=== PATIENT | female | born 1965 | race Caucasian/White ===

== ENCOUNTER 2017-07-27 06:07 | Day surgery (SDC) | payer OTHER ==
[~2017-07-27] VITALS: Ht 163.8 cm; Wt 104.3 kg
[~2017-07-27 06:07] MED LIST: DOXYCYCLINE HYC50 MG PO; OMEPRAZOLE40 M1 PO
[2017-07-27 13:10] VITALS: BP 140/85
[2017-07-27 14:10] VITALS: BP 141/83
[2017-07-27 14:54] VITALS: BP 120/66
== END 2017-07-27 15:02 | disposition home or self-care (01) ==
LOC: SDC 06:07
DX: K43.9 Ventral hernia without obstruction or gangrene (principal); K95.09 Other complications of gastric band procedure; E78.5 Hyperlipidemia, unspecified; G47.30 Sleep apnea, unspecified; K21.9 Gastro-esophageal reflux disease without esophagitis
CPT/HCPCS: J0131; J0330; J0690; J1100; J1170; J1644; J2250; J2405; J2710; J2765; J3010; S0020